=== PATIENT | male | born 1985 | race Caucasian/White ===

== ENCOUNTER 2018-08-10 10:10 | Emergency (ER) | payer OTHER ==
[2018-08-10 10:15] VITALS: BP 130/82
--- NOTE | 2018-08-10 10:26 | EDPHY ---
H & P Stated Complaint: Sinus pressure/sore throat Time Seen by Provider: 08/10/18 10:13 HPI/ROS: CHIEF COMPLAINT: Sinus pressure, change in nasal discharge color HISTORY OF PRESENT ILLNESS: Patient presents to the ED with sinus pressure which has been present for the past 3 weeks. Over the past several days he has had a change in the color of his nasal rhinorrhea. The patient also reports bilateral ear pain and a slight sore throat. He has a dry nonproductive cough. The patient denies significant past medical history. He does have a remote history of sinus infections. The patient denies any recent antibiotic use. The patient is intolerant to amoxicillin and Augmentin secondary to GI distress. REVIEW OF SYSTEMS: A comprehensive 10 point review of systems is otherwise negative aside from elements mentioned in the history of present illness. Source: Patient - Personal History Current Tetanus/Diphtheria Vaccine: Yes - Medical/Surgical History Hx Asthma: No Hx Chronic Respiratory Disease: No Hx Diabetes: No Hx Cardiac Disease: No Hx Renal Disease: No Hx Cirrhosis: No Hx Alcoholism: No Other PMH: IBS - Social History Smoking Status: Never smoked - Physical Exam Exam: General Appearance: Alert, no distress Eyes: Pupils equal and round no pallor or injection ENT, Mouth: Mucous membranes moist Respiratory: There are no retractions, lungs are clear to auscultation Cardiovascular: Regular rate and rhythm Gastrointestinal: Abdomen is soft and nontender, no masses, bowel sounds normal Neurological: A&O, normal motor function, normal sensory exam, normal cranial nerves Skin: Warm and dry, no rashes Musculoskeletal: Neck is supple nontender Extremities: symmetrical, full range of motion Constitutional: Initial Vital Signs Temperature (C) 36.6 C 08/10/18 10:12 Heart Rate 83 08/10/18 10:12 Respiratory Rate 18 08/10/18 10:12 Blood Pressure 130/82 H 08/10/18 10:12 O2 Sat (%) 96 08/10/18 10:12 O2 Delivery Mode Room Air Allergies/Adverse Reactions: NSAIDS (Non-Steroidal Anti-Inflamma Allergy (Verified 08/10/18 10:15) Home Medications: Medication Instructions Recorded Zari 08/10/18 Medical Decision Making ED Course/Re-evaluation: Patient presents to the ED with sinusitis. Given the duration of his symptoms and change in the color of his nasal discharge he will be treated with antibiotics. The patient is given a prescription for azithromycin. The patient is nontoxic and well-appearing. There is no evidence of meningitis clinically. Differential Diagnosis: Differential diagnosis considered includes sinusitis, meningitis, pharyngitis, otitis media Departure - Departure Disposition: Home, Routine, Self-Care Clinical Impression: Acute sinusitis Condition: Good Instructions: Sinusitis (ED) Additional Instructions: 1. Antibiotics as directed. 2. Return to the ED for worsening symptoms. Referrals: NONE *PRIMARY CARE P,. [Primary Care Provider] - As per Instructions
== END 2018-08-10 10:41 | disposition home or self-care (01) ==
DX: J01.90 Acute sinusitis, unspecified (principal)